=== PATIENT | male | born 1945 | race African-American/Black ===

== ENCOUNTER 2019-10-26 06:39 | Observation (INO) ==
[2019-10-26] MEDS ORDERED: PANTOPRAZOLE 40 MG VIAL IV STA (07:24)
[2019-10-26] MEDS ORDERED: SODIUM CHLORIDE 0.9% 500 ML IV STA (07:24)
[2019-10-26 07:39] LABS: Basophils # 0.1 10*3/uL (0.0-0.2); Basophils % 0.7 % (0.0-0.8); Eosinophils # 0.4 10*3/uL (0.0-0.87); Eosinophils % 3.6 % (0.00-10.9); Hematocrit 51.5 VOL% (42.0-52.0); Hemoglobin 16.2 GM/DL (14.0-18.0); Immature Granulocytes % 0.4 %; Immature Granulocytes Absolute 0.04 #; Lymphocytes # 2.3 10*3/uL (1.4-4.0); Lymphocytes % 23.7 % (21.2-54.2); Mean Corpuscular HGB Conc 31.5 GM/DL (32-36); Mean Corpuscular Volume 81.9 FL (87-102); Monocytes % 6.7 % (1.7-12.7); Neutrophils % 64.9 % (38.7-73.9); Platelet Count 462 T/CUMM (130-400); Red Blood Count 6.29 MC/CUMM (3.8-5.5); Red Cell Distribution Width 18.8 % (9.3-17.3); White Blood Count 9.8 T/CUMM (4-12)
[2019-10-26 08:10] LABS: INR 1.1; PT Patient Result 12.1 SECS (9.6-12.2)
[2019-10-26 08:21] LABS: Albumin 3.3 G/DL (3.4-5.0); Calcium 8.6 MG/DL (8.5-10.1); Osmolality,Calculated 286.5 MOS/KG (273-304)
[2019-10-26] MEDS ORDERED: DOCUSATE SODIUM 100 MG CAPSULE PO PRN (09:53)
[2019-10-26] MEDS ORDERED: ONDANSETRON 4 MG/2 ML VIAL IV PRN (09:53)
[2019-10-26] MEDS ORDERED: ACETAMINOPHEN 325 MG TABLET PO PRN (09:53)
[2019-10-26] MEDS: SODIUM CHLORIDE 0.9% 1,000 ML IV SCH (13:19)
[2019-10-26] MEDS: NICOTINE 21 MG/24 HR PATCH TRANSDERM SCH (13:20)
[2019-10-26 13:42] LABS: Hematocrit 47.7 VOL% (42.0-52.0); Hemoglobin 14.8 GM/DL (14.0-18.0)
[2019-10-26] MEDS ORDERED: MAGNESIUM HYDROXIDE SUSP 30 ML UDCUP PO PRN (14:16)
[2019-10-26] MEDS ORDERED: ALBUTEROL/IPRATROPIUM 3 ML NEB RESP TX PRN (14:20)
[2019-10-26 15:28] LABS: Basophils # 0.1 10*3/uL (0.0-0.2); Basophils % 0.8 % (0.0-0.8); Eosinophils # 0.3 10*3/uL (0.0-0.87); Eosinophils % 3.4 % (0.00-10.9); Hematocrit 47.7 VOL% (42.0-52.0); Immature Granulocytes % 0.5 %; Immature Granulocytes Absolute 0.05 #; Lymphocytes # 2.4 10*3/uL (1.4-4.0); Lymphocytes % 24.9 % (21.2-54.2); Mean Corpuscular HGB Conc 31.4 GM/DL (32-36); Mean Corpuscular Volume 82.7 FL (87-102); Mean Platelet Volume 10.5 FL (9.6-12.0); Neutrophils % 63.4 % (38.7-73.9); Platelet Count 437 T/CUMM (130-400); Red Blood Count 5.77 MC/CUMM (3.8-5.5); White Blood Count 9.8 T/CUMM (4-12)
[2019-10-26 15:36] LABS: Folate 19.3 NG/ML (5.4-24.0); Vitamin B12 689 PG/ML (211-911)
[2019-10-26] MEDS: POLYETHYLENE GLYCOL POWDER 17 GM PACK PO SCH (15:36)
[2019-10-26 16:29] LABS: Sedimentation Rate-Westergren 1 MM/HR (0-20)
[2019-10-26] MEDS ORDERED: MAGNESIUM HYDROXIDE SUSP 30 ML UDCUP PO SCH (21:00)
[2019-10-26] MEDS: METHENAMINE HIPPURATE 1 GM TABLET PO SCH (22:29)
[2019-10-26] MEDS: TAMSULOSIN 0.4 MG CAPSULE PO SCH (22:29)
[2019-10-26] MEDS: carvediloL 6.25 MG TABLET PO SCH (22:29)
[2019-10-26] MEDS: ATORVASTATIN 40 MG TABLET PO SCH (22:29)
[2019-10-27] MEDS: SODIUM CHLORIDE 0.9% 1,000 ML IV SCH ×2 (01:23→14:58)
[2019-10-27] MEDS: ACETAMINOPHEN 325 MG TABLET PO PRN ×2 (02:07→21:09)
[2019-10-27 06:20] LABS: Basophils # 0.1 10*3/uL (0.0-0.2); Basophils % 0.7 % (0.0-0.8); Eosinophils # 0.3 10*3/uL (0.0-0.87); Hematocrit 43.3 VOL% (42.0-52.0); Hemoglobin 13.5 GM/DL (14.0-18.0); Immature Granulocytes % 0.3 %; Immature Granulocytes Absolute 0.03 #; Lymphocytes # 1.8 10*3/uL (1.4-4.0); Lymphocytes % 20.2 % (21.2-54.2); Mean Corpuscular HGB Conc 31.2 GM/DL (32-36); Mean Corpuscular Volume 82.5 FL (87-102); Mean Platelet Volume 11.3 FL (9.6-12.0); Monocytes % 6.7 % (1.7-12.7); Neutrophils % 69.1 % (38.7-73.9); Platelet Count 436 T/CUMM (130-400); Red Blood Count 5.25 MC/CUMM (3.8-5.5); Red Cell Distribution Width 17.2 % (9.3-17.3); White Blood Count 8.9 T/CUMM (4-12)
[2019-10-27 06:42] LABS: Calcium 8.3 MG/DL (8.5-10.1); Osmolality,Calculated 281.5 MOS/KG (273-304)
[2019-10-27] MEDS ORDERED: PANTOPRAZOLE 40 MG VIAL IV SCH (09:00)
[2019-10-27] MEDS: carvediloL 6.25 MG TABLET PO SCH ×2 (09:28→21:09)
[2019-10-27] MEDS: DUTASTERIDE 0.5 MG CAPSULE PO SCH (09:28)
[2019-10-27] MEDS: NICOTINE 21 MG/24 HR PATCH TRANSDERM SCH (09:28)
[2019-10-27] MEDS: POLYETHYLENE GLYCOL POWDER 17 GM PACK PO SCH (09:28)
[2019-10-27] MEDS: CETIRIZINE 10 MG TABLET PO SCH (09:28)
[2019-10-27] MEDS: METHENAMINE HIPPURATE 1 GM TABLET PO SCH ×2 (12:41→21:09)
[2019-10-27 19:22] LABS: Hematocrit 44.8 VOL% (42.0-52.0); Hemoglobin 13.6 GM/DL (14.0-18.0)
[2019-10-27] MEDS: ATORVASTATIN 40 MG TABLET PO SCH (21:09)
[2019-10-27] MEDS: TAMSULOSIN 0.4 MG CAPSULE PO SCH (21:09)
[2019-10-27 22:23] LABS: Hematocrit 42.9 VOL% (42.0-52.0); Hemoglobin 13.4 GM/DL (14.0-18.0)
[2019-10-28 05:41] LABS: Hematocrit 43.9 VOL% (42.0-52.0); Hemoglobin 13.5 GM/DL (14.0-18.0)
[2019-10-28] MEDS: SODIUM CHLORIDE 0.9% 1,000 ML IV SCH ×2 (05:44→20:47)
[2019-10-28] MEDS: NICOTINE 21 MG/24 HR PATCH TRANSDERM SCH (09:13)
[2019-10-28] MEDS: POLYETHYLENE GLYCOL POWDER 17 GM PACK PO SCH (09:13)
[2019-10-28] MEDS: ASPIRIN EC 81 MG TABLET PO SCH (09:14)
[2019-10-28] MEDS: DUTASTERIDE 0.5 MG CAPSULE PO SCH (09:14)
[2019-10-28] MEDS: carvediloL 6.25 MG TABLET PO SCH ×2 (09:14→20:42)
[2019-10-28] MEDS: CETIRIZINE 10 MG TABLET PO SCH (09:14)
[2019-10-28] MEDS: METHENAMINE HIPPURATE 1 GM TABLET PO SCH ×2 (10:45→20:44)
[2019-10-28] MEDS: ACETAMINOPHEN 325 MG TABLET PO PRN ×2 (10:45→23:21)
[2019-10-28 11:27] LABS: Hematocrit 43.8 VOL% (42.0-52.0); Hemoglobin 13.6 GM/DL (14.0-18.0)
[2019-10-28] MEDS: SUCRALFATE 1 GM/10 ML UDCUP PO SCH ×3 (12:52→20:43)
[2019-10-28 16:22] LABS: Hematocrit 41.7 VOL% (42.0-52.0)
[2019-10-28] MEDS: PANTOPRAZOLE 40 MG VIAL IV SCH (20:42)
[2019-10-28] MEDS: ATORVASTATIN 40 MG TABLET PO SCH (20:42)
[2019-10-28] MEDS: TAMSULOSIN 0.4 MG CAPSULE PO SCH (20:47)
[2019-10-28 22:08] LABS: Hematocrit 42.6 VOL% (42.0-52.0); Hemoglobin 13.3 GM/DL (14.0-18.0)
[2019-10-29 05:22] LABS: Basophils # 0.1 10*3/uL (0.0-0.2); Basophils % 0.7 % (0.0-0.8); Eosinophils # 0.3 10*3/uL (0.0-0.87); Eosinophils % 4.7 % (0.00-10.9); Hematocrit 43.2 VOL% (42.0-52.0); Hemoglobin 13.4 GM/DL (14.0-18.0); Immature Granulocytes % 0.4 %; Immature Granulocytes Absolute 0.03 #; Lymphocytes # 1.4 10*3/uL (1.4-4.0); Lymphocytes % 19.7 % (21.2-54.2); Mean Corpuscular Volume 82.4 FL (87-102); Mean Platelet Volume 10.9 FL (9.6-12.0); Neutrophils % 67.5 % (38.7-73.9); Platelet Count 403 T/CUMM (130-400); Red Blood Count 5.24 MC/CUMM (3.8-5.5); Red Cell Distribution Width 16.6 % (9.3-17.3); White Blood Count 6.9 T/CUMM (4-12)
[2019-10-29 05:43] LABS: Calcium 8.3 MG/DL (8.5-10.1)
[2019-10-29] MEDS: METHENAMINE HIPPURATE 1 GM TABLET PO SCH (08:18)
[2019-10-29] MEDS: ASPIRIN EC 81 MG TABLET PO SCH (08:18)
[2019-10-29] MEDS: CETIRIZINE 10 MG TABLET PO SCH (08:18)
[2019-10-29] MEDS: carvediloL 6.25 MG TABLET PO SCH (08:18)
[2019-10-29] MEDS: SUCRALFATE 1 GM/10 ML UDCUP PO SCH ×2 (08:18→11:39)
[2019-10-29] MEDS: DUTASTERIDE 0.5 MG CAPSULE PO SCH (08:18)
[2019-10-29] MEDS: POLYETHYLENE GLYCOL POWDER 17 GM PACK PO SCH (08:18)
[2019-10-29] MEDS: PANTOPRAZOLE 40 MG VIAL IV SCH (08:19)
[2019-10-29] MEDS: NICOTINE 21 MG/24 HR PATCH TRANSDERM SCH (08:19)
[2019-10-29] MEDS: SODIUM CHLORIDE 0.9% 1,000 ML IV SCH (08:19)
[2019-10-29] MEDS: ACETAMINOPHEN 325 MG TABLET PO PRN (08:26)
[2019-10-29 10:12] LABS: Hemoglobin A1 (Alkaline) 97.5 % (96.5-98.5); Hemoglobin A2 (Alkaline) 2.5 % (1.5-3.5)
[2019-10-29 12:15] VITALS: BP 128/67
== END 2019-10-29 16:06 ==
LOC: EDUNIT# → N.EDINP 06:39 → N.ED 06:39 → SUATTDRO 10:21 → N.4E 11:34
PROVIDERS: ADMIT Nurse Practitioner Gerontology; ATTEND Internal Medicine